=== PATIENT | female | born 1950 | race Two or more races ===

== ENCOUNTER 2025-01-14 07:31 | Outpatient (CLI) | payer OTHER | END 2025-01-14 07:32 | disposition home or self-care (01) | LOC: NUCLEAR 07:31 | PROVIDERS: ATTEND Internal Medicine Gastroenterology | DX: C18.2 Malignant neoplasm of ascending colon (principal) | CPT/HCPCS: 78815; A9552 ==

== ENCOUNTER 2025-03-07 12:30 | Inpatient (IN) | payer OTHER ==
[~2025-03-07] VITALS: Ht 160 cm; Wt 68.9 kg
[2025-03-07 13:49] VITALS: BP 152/81
[2025-03-07] MEDS ORDERED: SERTRALINE20 MG/1 ML (13:51)
[2025-03-07] MEDS ORDERED: IRBESARTAN75 MG (13:51)
[2025-03-07] MEDS ORDERED: TOPROL XL25 M1 (13:51)
[2025-03-07] MEDS ORDERED: CRESTOR40 MG (13:51)
[2025-03-14] MEDS ORDERED: CEFTRIAXONE SODIUM 2,000 MG VIAL ONE (10:37)
[2025-03-14] MEDS ORDERED: METRONIDAZOLE/SODIUM CHLORIDE 500 MG/100 ML PIGGYBACK IV ONE ×2 (10:37→16:09)
[2025-03-14] MEDS ORDERED: BUPIVACAINE HCL/Mpf 0.5% 10ML VIAL ONE (10:38)
[2025-03-14] MEDS ORDERED: LIDOCAINE HCL 1%/EPINEPHRINE 20ML VIAL IJ ONE (10:38)
[2025-03-14] MEDS ORDERED: SUGAMMADEX SODIUM 200 MG/2 ML VIAL IV ONE (12:15)
[2025-03-14] MEDS ORDERED: ONDANSETRON HCL 2 MG/ML VIAL IV PRN (13:00)
[2025-03-14] MEDS ORDERED: DEXTROSE 50 % IN WATER 0.5 G/ML DISP.SYRIN IV PRN (13:00)
[2025-03-14] MEDS ORDERED: HYOSCYAMINE SULFATE 0.125 MG TAB.SUBL SL SCH (13:00)
[2025-03-14] MEDS ORDERED: 0.9 % SODIUM CHLORIDE 1,000 ML IV SCH (13:00)
[2025-03-14] MEDS ORDERED: MORPHINE SULFATE 4 MG/ML CARTRIDGE IV PRN (13:00)
[2025-03-14] MEDS ORDERED: OxyCODONE HCL 5 MG TABLET (ROXICODONE) PO PRN (13:00)
[2025-03-14] MEDS ORDERED: METRONIDAZOLE/SODIUM CHLORIDE 500 MG/100 ML PIGGYBACK IV SCH (13:00)
[2025-03-14] MEDS ORDERED: ACETAMINOPHEN 500 MG GEL..CAP PO SCH (14:00)
[2025-03-14 15:11] LABS: BASO % 0.3 % (0.1-1.2); EOS # 0.04 (0.04-0.54); EOS % 0.4 % (0.7-7.0); LYMPH # 0.87 (1.18-3.74); LYMPH % 7.6 % (19.3-53.1); MEAN PLATELET VOLUME 10.90 fl (9.4-12.4); MONO # 0.47 (0.24-0.82); MONO % 4.1 % (4.7-12.5); NEUT # 9.93 (1.56-6.13); NEUT % 87.2 % (34.0-71.1); RED CELL DISTRIBUTION WIDTH 14.8 % (11.6-14.4)
[2025-03-14 15:51] LABS: BUN CREA RATIO 16.0 (7.0-25.0); CREATININE SERUM 0.62 mg/dL (0.55-1.02); GFR 94.62; GLUCOSE FASTING 182.0 mg/dL (65-100); OSMOLALITY SERUM 283.0 MOSM/KG (275-295)
[2025-03-14 16:45] VITALS: BP 139/78; O2SAT 97
[2025-03-14] MEDS ORDERED: GABAPENTIN 300 MG CAPSULE PO SCH (17:00)
[2025-03-14] MEDS ORDERED: FAMOTIDINE/PF 20 MG/2 ML VIAL IV PUSH SCH (21:00)
[2025-03-15] VITALS: BP 125/71; O2SAT 95
[2025-03-15 08:00] VITALS: BP 115/61; O2SAT 94
[2025-03-15 08:14] LABS: BASO % 0.1 % (0.1-1.2); EOS # 0.02 (0.04-0.54); EOS % 0.2 % (0.7-7.0); LYMPH # 0.92 (1.18-3.74); LYMPH % 8.7 % (19.3-53.1); MEAN PLATELET VOLUME 11.20 fl (9.4-12.4); MONO # 0.91 (0.24-0.82); MONO % 8.6 % (4.7-12.5); NEUT # 8.71 (1.56-6.13); NEUT % 82.1 % (34.0-71.1); RED CELL DISTRIBUTION WIDTH 14.6 % (11.6-14.4)
[2025-03-15 08:50] LABS: BUN CREA RATIO 13.0 (7.0-25.0); CREATININE SERUM 0.54 mg/dL (0.55-1.02); GFR 110.97; GLUCOSE FASTING 120.0 mg/dL (65-100); OSMOLALITY SERUM 282.0 MOSM/KG (275-295)
[2025-03-15 16:00] VITALS: BP 133/74; O2SAT 95
[2025-03-15] MEDS ORDERED: ENOXAPARIN SODIUM 40 MG/0.4 ML SYRINGE SUBCUTANEO SCH (17:00)
[2025-03-15] MEDS ORDERED: ROSUVASTATIN CALCIUM 10 MG TABLET PO SCH (17:00)
[2025-03-16 08:00] VITALS: BP 157/78; O2SAT 95
[2025-03-16] MEDS ORDERED: SERTRALINE HCL 50 MG TABLET PO SCH (09:00)
[2025-03-16] MEDS ORDERED: ENOXAPARIN SODIUM 40 MG/0.4 ML SYRINGE SUBCUTANEO SCH (09:00)
[2025-03-16] MEDS ORDERED: METOPROLOL SUCCINATE 25 MG TAB.SR.24H PO SCH (09:00)
[2025-03-16] MEDS ORDERED: IRBESARTAN 150 MG TABLET PO SCH (09:00)
[2025-03-16] MEDS ORDERED: LEVSIN/SL0.125 MG SL (09:46)
[2025-03-16] MEDS ORDERED: INTESTINEX680 M1 PO (09:46)
[2025-03-16] MEDS ORDERED: NEURONTIN300 MG PO (09:47)
== END 2025-03-16 12:41 | disposition home or self-care (01) | DRG 331 ==
LOC: SURG 03-14 10:00 → O/R 03-14 10:00 → SURH 03-14 12:30 → SURG 03-14 15:12 → SURH 03-14 17:15 → SURG 03-16 12:41
PROVIDERS: ADMIT Surgery; ATTEND Surgery
PROC: 07BB4ZZ Excision of Mesenteric Lymphatic, Percutaneous Endoscopic Approach (ICD-10-PCS; 2025-03-14)
PROC: 07BC4ZZ Excision of Pelvis Lymphatic, Percutaneous Endoscopic Approach (ICD-10-PCS; 2025-03-14)
PROC: 0DTF4ZZ Resection of Right Large Intestine, Percutaneous Endoscopic Approach (ICD-10-PCS; principal; 2025-03-14 17:15)
DX: C18.2 Malignant neoplasm of ascending colon (principal); D12.2 Benign neoplasm of ascending colon; R59.0 Localized enlarged lymph nodes; I10 Essential (primary) hypertension; E78.5 Hyperlipidemia, unspecified; Z88.6 Allergy status to analgesic agent; Z91.040 Latex allergy status